=== PATIENT | female | born 1975 | race Caucasian/White ===

== ENCOUNTER 2017-11-11 22:21 | Emergency (ER) | payer OTHER ==
[2017-11-11 22:32] VITALS: BP 157/92
--- NOTE | 2017-11-11 23:02 | ED Physician Documentation ---
PD HPI SKIN - Stated complaint Stated Complaint: PX RT BREAST - Chief complaint Chief Complaint: Wound - History obtained from History obtained from: Patient - History of Present Illness Timing - onset: Today (noted tonight) Pain level now: 4 Quality / character: Itchy, Painful, Discolored, Raised, Swelling Associated symptoms: No: Fever Contributing factors: Unknown Similar symptoms before: Has not had sx before Recently seen: Not recently seen - Additional information Additional information: tonight, patient noticed she had a tender, red, swollen area on lateral aspect of right breast. 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 - Present Medications Home Medications: Ambulatory Orders Medication Instructions Recorded Confirmed Lisinopril 10 mg PO DAILY 01/25/16 11/11/17 Cephalexin [Keflex] 500 mg PO QID #27 capsule 11/11/17 - Allergies Allergies/Adverse Reactions: Allergies Allergy/AdvReac Type Severity Reaction Status Date / Time doxycycline Allergy Edema Verified 06/02/13 14:42 - Social History Does the pt smoke?: No Smoking Status: Never smoker Does the pt drink ETOH?: No Does the pt have substance abuse?: No - Immunizations Immunizations are current?: Yes PD ED PE NORMAL - Vitals Vital signs reviewed: Yes - General General: Alert and oriented X 3, No acute distress, Well developed/nourished PD ED PE EXPANDED - Derm SKin visual: 1 - tenderness (2-3cm diameter erythema, slightly raised, without fluctuance or discharge. No palpable abscess margins) Results - Vitals Vitals: Vital Signs - 24 hr 11/11/17 22:28 Temperature 36.5 C Heart Rate 77 Respiratory 18 Rate Blood Pressure 157/92 H O2 Saturation 98 Oxygen O2 Source Room air PD MEDICAL DECISION MAKING - ED course Complexity details: considered differential, d/w patient Departure - Departure Disposition: 01 Home, Self Care Clinical Impression: Cellulitis Condition: Good Instructions: ED Infec Skin Cellulitis Follow-Up: PATRICIA EISENBERG [Primary Care Provider] - (3-5 days) Prescriptions: Cephalexin [Keflex] 500 mg PO QID #27 capsule Discharge Date/Time: 11/11/17 23:23
[2017-11-11] MEDS ORDERED: cephALEXin 250 MG CAPSULE PO STA (23:14)
== END 2017-11-11 23:23 | disposition home or self-care (01) ==
LOC: ED 22:21
DX: N61.0 Mastitis without abscess (principal); I10 Essential (primary) hypertension; E78.00 Pure hypercholesterolemia, unspecified
CPT/HCPCS: 99283; A9270

== ENCOUNTER 2018-02-12 11:02 | Emergency (ER) | payer OTHER ==
[2018-02-12 11:12] VITALS: BP 187/98
[2018-02-12] MEDS ORDERED: OSELTAMIVIR 75 MG CAPSULE PO STA (12:06)
[2018-02-12] MEDS ORDERED: guaiFENesin/DEXTROMETHORPHAN 10 ML UDC PO STA (12:06)
[2018-02-12] MEDS ORDERED: IBUPROFEN 400 MG TABLET PO STA (12:08)
--- NOTE | 2018-02-12 12:25 | ED Physician Documentation ---
History of Present Illness - Stated complaint Stated Complaint: COUGH/CHILLS/WILSON - Chief complaint Chief Complaint: Fever - Additonal information Additional information: hx from pt 42 female to ED with 2 days of fever chills myalgias cough no NVD with same no travel sick contacts at work Review of Systems Constitutional: reports: Fever, Chills, Myalgias, Fatigue Respiratory: reports: Cough GI: denies: Vomiting, Diarrhea : denies: Now EGA (denies) PD PAST MEDICAL HISTORY - Past Medical History Past Medical History: Yes Cardiovascular: Hypertension, High cholesterol Derm: Other - Past Surgical History 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, 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 - Present Medications Home Medications: Ambulatory Orders Medication Instructions Recorded Confirmed Lisinopril 10 mg PO DAILY 01/25/16 02/12/18 Benzonatate [Tessalon] 100 mg PO TID PRN #20 capsule 02/12/18 Oseltamivir [Tamiflu] 75 mg PO BID #9 capsule 02/12/18 guaiFENesin/DEXTROMETHORPHAN 10 ml PO Q6H PRN #120 ml 02/12/18 [Robitussin Dm] - Allergies Allergies/Adverse Reactions: Allergies Allergy/AdvReac Type Severity Reaction Status Date / Time doxycycline Allergy Edema Verified 02/12/18 11:12 - Social History Does the pt smoke?: No Smoking Status: Never smoker Does the pt drink ETOH?: No Does the pt have substance abuse?: No - Immunizations Immunizations are current?: Yes - POLST Patient has POLST: No PD ED PE NORMAL - Vitals Vital signs reviewed: Yes - General General: Alert and oriented X 3 - HEENT HEENT: PERRL - Neck Neck: Supple, no meningeal sign - Cardiac Cardiac: RRR - Respiratory Respiratory: No respiratory distress, Clear bilaterally - Abdomen Abdomen: Non tender - Neuro Neuro: Alert and oriented X 3 Results - Vitals Vitals: Vital Signs - 24 hr 02/12/18 11:10 Temperature 37.0 C Heart Rate 89 Respiratory 22 Rate Blood Pressure 187/98 H O2 Saturation 99 Oxygen O2 Source Room air - Labs Labs: Laboratory Tests 02/12/18 11:14 Influenza A (Rapid) Negative Influenza B (Rapid) POSITIVE H Influenza Types A,B Ag + H PD MEDICAL DECISION MAKING - ED course ED course: discussed side effects of tamiflu and risk benefit and pt wishes to take it Departure - Departure Disposition: 01 Home, Self Care Clinical Impression: Influenza B Condition: Good Instructions: ED Flu, Medication: Tamiflu (Oseltamivir) Prescriptions: Benzonatate [Tessalon] 100 mg PO TID PRN #20 capsule PRN Reason: to ease cough guaiFENesin/DEXTROMETHORPHAN [Robitussin Dm] 10 ml PO Q6H PRN #120 ml PRN Reason: Cough Oseltamivir [Tamiflu] 75 mg PO BID #9 capsule Comments: You have influenza B As we discussed the tamiflu medication can shorten the duration and severity of the illness but sometimes causes side effects much as vomiting diarrhea or even hallucinations and other neurologic symptoms - if you develop side effects, please stop the tamiflu Forms: Activity restrictions
== END 2018-02-12 12:43 | disposition home or self-care (01) ==
LOC: ED 11:02
DX: J10.1 Influenza due to other identified influenza virus with other respiratory manifestations (principal); I10 Essential (primary) hypertension; E78.00 Pure hypercholesterolemia, unspecified
CPT/HCPCS: 87275; 87276; 99281; 99283; A9270

== ENCOUNTER 2018-02-14 18:40 | Emergency (ER) | payer OTHER ==
--- NOTE | 2018-02-14 19:20 | ED Physician Documentation ---
PD HPI URI - Stated complaint Stated Complaint: SOA - Chief complaint Chief Complaint: Resp - History obtained from History obtained from: Patient - History of Present Illness Timing - onset: Yesterday Timing duration: Days (had had flu symptoms for a week or so with cough and malaise, now with increased cough and feeling short of breath.) Timing details: Abrupt onset, Still present Associated symptoms: Chills, Nasal congestion, Sore throat, Dry cough. No: Fever Contributing factors: Sick contact (her had initially and was Dx with Influenza B, then patient sick with same symptoms. Now daughter is with it starting yesterday.). No: Travel, Immunocompromised Worsened by: Activity Similar symptoms before: Has not had sx before Recently seen: Clinic (Rx with Tamiflu and Tessalon.) Review of Systems Constitutional: reports: Fever, Myalgias Nose: reports: Rhinorrhea / runny nose, Congestion Throat: denies: Sore throat Respiratory: reports: Dyspnea, Cough GI: reports: Nausea. 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 - Present Medications Home Medications: Ambulatory Orders Medication Instructions Recorded Confirmed Lisinopril 10 mg PO DAILY 01/25/16 02/12/18 Benzonatate [Tessalon] 100 mg PO TID PRN #20 capsule 02/12/18 Oseltamivir [Tamiflu] 75 mg PO BID #9 capsule 02/12/18 guaiFENesin/DEXTROMETHORPHAN 10 ml PO Q6H PRN #120 ml 02/12/18 [Robitussin Dm] Albuterol Sulf [Ventolin Hfa 1 - 2 puffs INH Q4HR PRN #1 inhaler 02/14/18 Inhaler] Dexamethasone [Decadron] 4 mg PO DAILY #5 tablet 02/14/18 HYDROcod/ACETAM 5/325 [[place] 5/325] 1 tab PO Q6H PRN #15 tablet 02/14/18 - Allergies Allergies/Adverse Reactions: Allergies Allergy/AdvReac Type Severity Reaction Status Date / Time doxycycline Allergy Edema Verified 02/12/18 11:12 - Social History Does the pt smoke?: No Smoking Status: Never smoker Does the pt drink ETOH?: No Does the pt have substance abuse?: No - Immunizations Immunizations are current?: Yes - POLST Patient has POLST: No PD ED PE NORMAL - Vitals Vital signs reviewed: Yes - General General: Alert and oriented X 3, No acute distress, Well developed/nourished - HEENT HEENT: Ears normal, Moist mucous membranes, Pharynx benign, Other (clear rhinorrhea) - Neck Neck: Supple, no meningeal sign - Cardiac Cardiac: RRR, No murmur - Respiratory Respiratory: No: Clear bilaterally (wheezing noted bilaterally and with some perihilar hoarseness. Some hoarseness of voice. ) - Abdomen Abdomen: Soft, Non tender - Derm Derm: Normal color, Warm and dry, No rash - Extremities Extremities: No tenderness to palpate, Normal ROM s pain - Neuro Neuro: Alert and oriented X 3, No motor deficit, Normal speech (just hoarse) Results - Vitals Vitals: Vital Signs - 24 hr 02/14/18 02/14/18 02/14/18 18:43 19:57 20:39 Temperature 37.4 C 37.2 C Heart Rate 86 86 87 Respiratory 18 18 12 Rate Blood Pressure 167/90 H 156/102 H O2 Saturation 98 97 Oxygen O2 Source Room air PD MEDICAL DECISION MAKING - ED course Complexity details: re-evaluated patient (feeling better after Neb treatment. ) , considered differential (Has flu and has hoarseness and wheezing, without fevers and has good sats. Sounds inflammatory and bronchspastic. ), d/w patient , d/w family Departure - Departure Disposition: 01 Home, Self Care Clinical Impression: Bronchitis, Influenza B Condition: Stable Record reviewed to determine appropriate education?: Yes Instructions: ED URI Viral W Wheezing Follow-Up: PATRICIA EISENBERG [Primary Care Provider] - Prescriptions: Albuterol Sulf [Ventolin Hfa Inhaler] 1 - 2 puffs INH Q4HR PRN #1 inhaler PRN Reason: Shortness Of Air/Wheezing Dexamethasone [Decadron] 4 mg PO DAILY #5 tablet HYDROcod/ACETAM 5/325 [[place] 5/325] 1 tab PO Q6H PRN #15 tablet PRN Reason: Pain Comments: This sounds like some bronchial inflammation and airway spasming related to the flu. We will add an albuterol inhaler 2 puffs 4 times a day the next 7-10 days and added times when you are feeling wheezy or tight. Add Decadron anti- inflammatory daily for 5 more days to decrease the inflammation. Use hydrocodone if needed for pain and cough is a better cough suppressant. He can continue the Tessalon he had as well. Drink lots of fluids. Tylenol or ibuprofen if needed for fevers or pains. Recheck if not improving over the next few days. Forms: Activity restrictions Discharge Date/Time: 02/14/18 20:40
[2018-02-14] MEDS ORDERED: guaiFENesin/CODEINE 5 ML UDC PO STA (19:47)
[2018-02-14] MEDS ORDERED: DEXAMETHASONE 10 MG/ML VIAL PO STA (19:47)
[2018-02-14] MEDS ORDERED: ALBUTEROL NEB 2.5 MG/3 ML INH STA (19:47)
[2018-02-14] MEDS ORDERED: HYDROcod/ACET 5/325 Prepack 4 PO STA (20:26)
[2018-02-14 20:39] VITALS: BP 156/102
== END 2018-02-14 20:40 | disposition home or self-care (01) ==
LOC: ED 18:40
DX: J10.1 Influenza due to other identified influenza virus with other respiratory manifestations (principal); J40 Bronchitis, not specified as acute or chronic; I10 Essential (primary) hypertension; E78.00 Pure hypercholesterolemia, unspecified
CPT/HCPCS: 94640; 99283; A9270

== ENCOUNTER 2019-08-29 21:24 | Emergency (ER) | payer OTHER ==
--- NOTE | 2019-08-29 22:22 | ED Physician Documentation ---
PD HPI BACK INJURY - Stated complaint Stated Complaint: BK PX - History obtained from History obtained from: Patient - History of Present Illness Location: Lower (midline to just right) Type of injury: Twist (just slight twist and bending to lift and abrupt onset of lower back pain. Continues to hurt with minimal ROM. No fever, No radiation of pain. No weakness nor numbness. No chronic back pain.). No: Fall Where injury occurred: Home Timing - onset: Yesterday Timing - details: Abrupt onset, Still present Quality: Pain, Sharp Improved by: Rest Worsened by: Moving. No: Palpating Associated symptoms: No: Fever, Weakness, Numbness, Incontinent of urine Contributing factors: No: Prior back surgery, Work related Similar symptoms before: Has not had sx before (back pain many years ago but no chronic/ongoing pains.) Recently seen: Not recently seen Review of Systems Constitutional: denies: Fever, Chills, Myalgias Nose: denies: Rhinorrhea / runny nose, Congestion Throat: denies: Sore throat Cardiac: denies: Chest pain / pressure Respiratory: denies: Dyspnea, Cough GI: denies: Abdominal Pain, Nausea, Vomiting, Diarrhea : denies: Dysuria, Frequency, Hematuria Skin: denies: Rash, Lesions Musculoskeletal: reports: Back pain Neurologic: denies: Focal weakness, Numbness PD PAST MEDICAL HISTORY - Past Medical History Cardiovascular: Hypertension, High cholesterol Respiratory: None Endocrine/Autoimmune: None Derm: Other - Past Surgical History 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, 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 - Present Medications Home Medications: Ambulatory Orders Medication Instructions Recorded Confirmed Lisinopril 10 mg PO DAILY 01/25/16 02/12/18 Benzonatate [Tessalon] 100 mg PO TID PRN #20 capsule 02/12/18 Oseltamivir [Tamiflu] 75 mg PO BID #9 capsule 02/12/18 guaiFENesin/DEXTROMETHORPHAN 10 ml PO Q6H PRN #120 ml 02/12/18 [Robitussin Dm] Albuterol Sulf [Ventolin Hfa 1 - 2 puffs INH Q4HR PRN #1 inhaler 02/14/18 Inhaler] HYDROcod/ACETAM 5/325 [[place] 5/325] 1 tab PO Q6H PRN #15 tablet 02/14/18 dexAMETHasone [Decadron] 4 mg PO DAILY #5 tablet 02/14/18 Oxycodone HCl/Acetaminophen 1 each PO Q6H PRN #18 tablet 08/29/19 [Percocet 5-325 mg Tablet] Tizanidine HCl 4 mg PO TID PRN #25 capsule 08/29/19 dexAMETHasone [Decadron] 4 mg PO DAILY #5 tablet 08/29/19 - Allergies Allergies/Adverse Reactions: Allergies Allergy/AdvReac Type Severity Reaction Status Date / Time doxycycline Allergy Edema Verified 08/29/19 21:25 - Social History Does the pt smoke?: No Smoking Status: Never smoker Does the pt drink ETOH?: No Does the pt have substance abuse?: No - Immunizations Immunizations are current?: Yes - POLST Patient has POLST: No PD ED PE NORMAL - Vitals Vital signs reviewed: Yes - General General: Alert and oriented X 3, No acute distress, Well developed/nourished - Cardiac Cardiac: RRR, No murmur - Respiratory Respiratory: Clear bilaterally - Abdomen Abdomen: Soft, Non tender - Female Female : Deferred - Rectal Rectal: Deferred - Back Back: No CVA TTP, Other (tender lower lumbar midline and just right of center. No deformity. SI area not tender. Guarded ROM with pain and stiffness. ) - Derm Derm: Normal color - Extremities Extremities: No edema, No calf tenderness / cord - Neuro Neuro: Alert and oriented X 3, No motor deficit, No sensory deficit, Other (normal knee reflexes. ) Results - Vitals Vitals: Vital Signs - 24 hr 08/29/19 23:25 Heart Rate 72 Respiratory 16 Rate Blood Pressure 147/102 H O2 Saturation 100 Oxygen O2 Source Room air - Labs Labs: Laboratory Tests 08/29/19 22:25 Urine Color YELLOW Urine Clarity CLEAR Urine pH 6.5 Ur Specific [place] 1.020 Urine Protein NEGATIVE Urine Glucose (UA) NEGATIVE Urine Ketones TRACE Urine Occult Blood NEGATIVE Urine Nitrite NEGATIVE Urine Bilirubin NEGATIVE Urine Urobilinogen 1 (NORMAL) Ur Leukocyte Esterase NEGATIVE Ur Microscopic Review NOT INDICATED Urine Culture Comments NOT INDICATED - Rads (name of study) lumbar CT Radiology: Prelim report reviewed (neural formaminal stenosis at L5/S1, no fractures. DDD. Similar to images from 2013.), See rad report PD MEDICAL DECISION MAKING - ED course Complexity details: reviewed results (no fractures, similar to CT of 2013), re- evaluated patient (improved with IM and PO meds. ), considered differential (abrupt pain onset and hurts with slight movement. Tender midline. Get imaging to ensure no acute compressive defect or such. ), d/w patient Departure - Departure Disposition: 01 Home, Self Care Clinical Impression: Strain of muscle, fascia and tendon of lower back, initial encounter Condition: Stable Record reviewed to determine appropriate education?: Yes Instructions: ED Low Back Pain Injury Prescriptions: dexAMETHasone [Decadron] 4 mg PO DAILY #5 tablet Oxycodone HCl/Acetaminophen [Percocet 5-325 mg Tablet] 1 each PO Q6H PRN #18 tablet PRN Reason: pain Tizanidine HCl 4 mg PO TID PRN #25 capsule PRN Reason: Spasms Comments: Heat and gentle stretching for the back. Physical treatment such as chiropractic and massage are good. Continue some anti-inflammatories such as ibuprofen 600 800 mg 3 times a day. Add Decadron steroid anti-inflammatory daily for 5 more days. Tizanidine muscle relaxant if needed for stiffness and spasms. Add Tylenol or Percocet every 4-6 hours if needed for pain. Recheck if not improving well over the next several days to week. Discharge Date/Time: 08/30/19 00:02
[2019-08-29] MEDS ORDERED: HYDROmorphone 1 MG/ML CARPUJECT IM STA (22:38)
[2019-08-29] MEDS ORDERED: CHERRY SYRUP 10 ML UDC PO ONE (22:38)
[2019-08-29] MEDS ORDERED: DEXAMETHASONE 10 MG/ML VIAL PO STA (22:38)
[2019-08-29] MEDS ORDERED: LORazepam 2 MG/ML VIAL IM STA (22:38)
[2019-08-29] MEDS ORDERED: ACETAMINOPHEN 325 MG TABLET PO STA (22:39)
[2019-08-29 22:40] LABS: BILIRUBIN,URINE NEGATIVE (NEGATIVE); GLUCOSE, URINE (UA) NEGATIVE (NEGATIVE); KETONES,URINE (UA) TRACE mg/dL (NEGATIVE); LEUKOCYTE ESTERASE, URINE NEGATIVE (NEGATIVE); NITRITE,URINE NEGATIVE (NEGATIVE); OCCULT BLOOD,URINE NEGATIVE (NEGATIVE); PH,URINE 6.5 PH (5.0-7.5); PROTEIN,URINE NEGATIVE (NEGATIVE); UROBILINOGEN,URINE 1 (NORMAL) E.U./dL (NORMAL)
[2019-08-29 22:51] LABS: CLARITY,URINE CLEAR (CLEAR)
[2019-08-29 23:27] VITALS: BP 147/102
--- NOTE | 2019-08-29 23:41 | CT Report ---
Reason: abrupt lumbar pain with twisting Procedure Date: 08/29/2019 Accession Number: [id number] / [id number] Procedure: CT - LUMBAR SPINE WO CPT Code: FULL RESULT: EXAM: CT LUMBAR SPINE WITHOUT CONTRAST EXAM DATE: 08/29/2019 11:09 PM. CLINICAL HISTORY: Abrupt lumbar pain with twisting. COMPARISONS: ABDOMEN/PELVIS W/ 07/12/2013 2:26 AM. TECHNIQUE: Thin-section axial images were acquired of the lumbar spine from T12 to S1 without contrast. Post-processing: Coronal and sagittal reformats. Other: None. In accordance with CT protocol optimization, one or more of the following dose reduction techniques were utilized for this exam: automated exposure control, adjustment of mA and/or KV based on patient size, or use of iterative reconstructive technique. FINDINGS: Alignment: No scoliosis or spondylolisthesis. Bones: Five [id number] lumbar vertebral bodies are present. No fractures or bone lesions. Disk Levels/Facets: T12-L1: Unremarkable. L1-L2: Unremarkable. L2-L3: Unremarkable. L3-L4: Unremarkable. L4-L5: Mild to moderate left facet arthropathy. L5-S1: Mild to moderate disk height loss. Uncovertebral hypertrophic changes on the right with some mild facet arthropathy creates moderate to severe right neural foraminal stenosis. No significant left neural foraminal stenosis. Anterior disk osteophyte complex. Irregularity to the inferior endplate, but sclerosis involving nearly half of the L5 vertebral body, similar as on the prior. Musculature: Normal. No fatty atrophy. Other: The visualized retroperitoneum is unremarkable. IMPRESSION: Degenerative disk disease at L5-S1, with moderate to severe right neural foraminal stenosis. There is no fracture or subluxation. Not significantly changed compared to June 2013. RADIA
[2019-08-29] MEDS ORDERED: oxyCODONE/ACET 5/325 Prepack 4 PO STA (23:43)
== END 2019-08-30 00:02 | disposition home or self-care (01) ==
LOC: ED 21:24
DX: S39.012A Strain of muscle, fascia and tendon of lower back, initial encounter (principal); X50.1XXA Overexertion from prolonged static or awkward postures, initial encounter; Y92.009 Unspecified place in unspecified non-institutional (private) residence as the place of occurrence of the external cause; M51.37 Other intervertebral disc degeneration, lumbosacral region; M48.07 Spinal stenosis, lumbosacral region; I10 Essential (primary) hypertension
CPT/HCPCS: 72131; 81003; 96372; 99284; A9270; J1170; J2060; 81001; 87086

== ENCOUNTER 2020-04-13 16:48 | Emergency (ER) | payer OTHER ==
[2020-04-13] MEDS ORDERED: AZITHROMYCIN 250 MG TABLET PO STA (17:34)
--- NOTE | 2020-04-13 17:37 | ED Physician Documentation ---
History of Present Illness - Stated complaint Stated Complaint: COUGH - Chief complaint Chief Complaint: General - History obtained from History obtained from: Patient (3 months of minimally productive cough, worse towards the end of the workday and less so at night and in the morning. No shortness of breath or chest pain. No fevers. 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 - Present Medications Home Medications: Ambulatory Orders Medication Instructions Recorded Confirmed lisinopriL [Lisinopril] 10 mg PO DAILY 01/25/16 02/12/18 Benzonatate [Tessalon] 100 mg PO TID PRN #20 capsule 02/12/18 Oseltamivir [Tamiflu] 75 mg PO BID #9 capsule 02/12/18 guaiFENesin/DEXTROMETHORPHAN 10 ml PO Q6H PRN #120 ml 02/12/18 [Robitussin Dm] Albuterol Sulf [Ventolin Hfa 1 - 2 puffs INH Q4HR PRN #1 inhaler 02/14/18 Inhaler] HYDROcod/ACETAM 5/325 [[place] 5/325] 1 tab PO Q6H PRN #15 tablet 02/14/18 dexAMETHasone [Decadron] 4 mg PO DAILY #5 tablet 02/14/18 Oxycodone HCl/Acetaminophen 1 each PO Q6H PRN #18 tablet 08/29/19 [Percocet 5-325 mg Tablet] Tizanidine HCl 4 mg PO TID PRN #25 capsule 08/29/19 dexAMETHasone [Decadron] 4 mg PO DAILY #5 tablet 08/29/19 Azithromycin 1 tab PO DAILY #4 tablet 04/13/20 guaiFENesin/CODEINE [Robitussin AC] 5 - 10 ml PO Q6H PRN #120 ml 04/13/20 - Allergies Allergies/Adverse Reactions: Allergies Allergy/AdvReac Type Severity Reaction Status Date / Time doxycycline Allergy Edema Verified 08/29/19 21:25 - Social History Does the pt smoke?: No Smoking Status: Never smoker Does the pt drink ETOH?: No Does the pt have substance abuse?: No - Immunizations Immunizations are current?: Yes - POLST Patient has POLST: No PD ED PE NORMAL - Vitals Vital signs reviewed: Yes - General General: Alert and oriented X 3, Other (Occasional bronchitic cough) - Cardiac Cardiac: RRR, No murmur - Respiratory Respiratory: No respiratory distress, Clear bilaterally - Abdomen Abdomen: Non tender - Neuro Neuro: Alert and oriented X 3, Normal speech - Psych Psych: Normal mood, Normal affect Results - Vitals Vitals: Vital Signs - 24 hr 04/13/20 16:55 Temperature 36.8 C Heart Rate 91 Respiratory 16 Rate Blood Pressure 156/100 H O2 Saturation 100 Oxygen O2 Source Room air PD MEDICAL DECISION MAKING - ED course ED course: Given the time course, pertussis is a possibility and a test will be done and she is administered Zithromax pending results. Also discussed that she needs to be out of work and on home quarantine until either the results are done or the antibiotics are complete. Departure - Departure Disposition: 01 Home, Self Care Clinical Impression: Bronchitis Condition: Good Record reviewed to determine appropriate education?: Yes Instructions: Bronchitis Acute Dc Prescriptions: Azithromycin 1 tab PO DAILY #4 tablet guaiFENesin/CODEINE [Robitussin AC] 5 - 10 ml PO Q6H PRN #120 ml PRN Reason: Cough Comments: We are running a test for pertussis, we will call you if it is positive. That said you should self quarantine until either it is negative or you have completed the antibiotics. Return for new or worsening symptoms. Forms: Activity restrictions
[2020-04-13] MEDS ORDERED: guaiFENesin/CODEINE 5 ML UDC PO STA (17:39)
[2020-04-13 18:04] VITALS: BP 160/89
== END 2020-04-13 18:04 | disposition home or self-care (01) ==
LOC: ED 16:48
DX: J40 Bronchitis, not specified as acute or chronic (principal); I10 Essential (primary) hypertension
CPT/HCPCS: 87798; 99284; A9270

== ENCOUNTER 2020-04-22 20:10 | Emergency (ER) | payer OTHER ==
[2020-04-22 20:25] VITALS: BP 147/91
--- NOTE | 2020-04-22 20:39 | ED Physician Documentation ---
PD HPI URI - Stated complaint Stated Complaint: COUGH / FEMALE - Chief complaint Chief Complaint: Resp - History obtained from History obtained from: Patient - History of Present Illness Timing - onset: How many months ago (2 1/2) Timing duration: Months (2 1/2) Timing details: Abrupt onset, Still present Associated symptoms: Sore throat, Dry cough, Dyspnea. No: Fever, Hemoptysis, Chest pain, Bilateral edema Contributing factors: No: Sick contact, Immunocompromised, COPD / asthma Recently seen: Emergency Dept (seen about 10 days ago for this and Rx with zithromax and cough med, with pertussis test done, which came back negative. Pt says got some better but not fully and symptoms returning the past 3-4 days.) Review of Systems Constitutional: reports: Myalgias. denies: Fever, Chills Nose: denies: Sinus pressure / pain Throat: reports: Sore throat Cardiac: denies: Chest pain / pressure Respiratory: reports: Dyspnea, Cough. denies: Wheezing GI: denies: Vomiting, Diarrhea : reports: Discharge (itchy with slight discharge c/w yeast infection the past 4-5 days) PD PAST MEDICAL HISTORY - Past Medical History Cardiovascular: Hypertension, High cholesterol Respiratory: None Endocrine/Autoimmune: None Derm: Other - Past Surgical History Past Surgical History: Yes /BENCH HAND: section, 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 - Present Medications Home Medications: Ambulatory Orders Medication Instructions Recorded Confirmed lisinopriL [Lisinopril] 30 mg PO DAILY 01/25/16 02/12/18 Benzonatate [Tessalon Perle] 100 - 200 mg PO TID PRN #30 capsule 04/22/20 Fluconazole [Diflucan] 150 mg PO Q3D #2 tablet 04/22/20 Hydrochlorothiazide 25 mg PO DAILY 04/22/20 04/22/20 cefUROXime axetiL [Ceftin] 250 mg PO Q12H #14 tablet 04/22/20 dexAMETHasone [Decadron] 4 mg PO DAILY #5 tablet 04/22/20 guaiFENesin/CODEINE [Robitussin AC] 10 ml PO Q6H PRN #240 ml 04/22/20 - Allergies Allergies/Adverse Reactions: Allergies Allergy/AdvReac Type Severity Reaction Status Date / Time doxycycline Allergy Edema Verified 04/22/20 20:26 - Social History Does the pt smoke?: No Smoking Status: Never smoker Does the pt drink ETOH?: No Does the pt have substance abuse?: No - Immunizations Immunizations are current?: Yes - POLST Patient has POLST: No PD ED PE NORMAL - Vitals Vital signs reviewed: Yes - General General: Alert and oriented X 3, No acute distress, Well developed/nourished - HEENT HEENT: Ears normal, Moist mucous membranes, Pharynx benign - Neck Neck: Supple, no meningeal sign, No adenopathy - Cardiac Cardiac: RRR, No murmur - Respiratory Respiratory: No respiratory distress, Clear bilaterally, Other (harsh, vibrato cough at times, with persistence.) Results - Vitals Vitals: Vital Signs - 24 hr 04/22/20 20:19 Temperature 36.4 C L Heart Rate 94 Respiratory 18 Rate Blood Pressure 147/91 H O2 Saturation 98 Oxygen O2 Source Room air PD MEDICAL DECISION MAKING - ED course Complexity details: reviewed old records, reviewed results, considered differential, d/w patient Departure - Departure Disposition: 01 Home, Self Care Clinical Impression: Bronchitis, Yeast vaginitis Condition: Stable Record reviewed to determine appropriate education?: Yes Instructions: ED Upper Resp Infec Abx Tx Follow-Up: VASQUEZ GROVER ARNP [Primary Care Provider] - Prescriptions: Benzonatate [Tessalon Perle] 100 - 200 mg PO TID PRN #30 capsule PRN Reason: Cough cefUROXime axetiL [Ceftin] 250 mg PO Q12H #14 tablet dexAMETHasone [Decadron] 4 mg PO DAILY #5 tablet Fluconazole [Diflucan] 150 mg PO Q3D #2 tablet guaiFENesin/CODEINE [Robitussin AC] 10 ml PO Q6H PRN #240 ml PRN Reason: Cough Comments: Stay well-hydrated. Use the benzonatate and cough medicine as needed for cough suppression as prescribed. We will try different antibiotic with Ceftin twice daily for a week. Also add Decadron steroid for inflammation of the bronchials daily for 5 more days. Use the fluconazole orally every 3 days for 2 more doses to treat the precipitated yeast infection. Recheck if not improved well over the next week. Discharge Date/Time: 04/22/20 21:35
[2020-04-22] MEDS ORDERED: CHERRY SYRUP 10 ML UDC PO ONE (21:10)
[2020-04-22] MEDS ORDERED: DEXAMETHASONE 10 MG/ML VIAL PO STA (21:10)
[2020-04-22] MEDS ORDERED: FLUCONAZOLE 100 MG TABLET PO STA (21:10)
[2020-04-22] MEDS ORDERED: BENZONATATE 100 MG CAPSULE PO STA (21:10)
[2020-04-22] MEDS ORDERED: guaiFENesin/CODEINE 5 ML UDC PO STA (21:11)
== END 2020-04-22 21:35 | disposition home or self-care (01) ==
LOC: ED 20:10
DX: J40 Bronchitis, not specified as acute or chronic (principal); B37.3 Candidiasis of vulva and vagina; I10 Essential (primary) hypertension
CPT/HCPCS: 99283; 99284; A9270

== ENCOUNTER 2020-04-26 14:07 | Emergency (ER) | payer OTHER ==
--- NOTE | 2020-04-26 14:23 | ED Physician Documentation ---
History of Present Illness - Stated complaint Stated Complaint: HIGH BLOOD SUGAR - Chief complaint Chief Complaint: General - History obtained from History obtained from: Patient - History of Present Illness Timing: Today Pain level max: 0 Pain level now: 0 - Additonal information Additional information: 44 year old female with increased thirst and urination for the past several weeks. She was recently treated for a URI and placed on steroids. States that she checked her blood sugar last night with her parents machine and found her blood sugar was high. No abdominal pain. No vomiting or diarrhea. She has been taking decadron recently. Review of Systems Ten Systems: 10 systems reviewed and negative Constitutional: denies: Fever Nose: denies: Rhinorrhea / runny nose, Congestion Throat: denies: Sore throat Respiratory: denies: Cough GI: denies: Abdominal Pain, Vomiting, Constipation, Diarrhea, Hematemesis, Bloody / black stool : denies: Dysuria Skin: denies: Rash Musculoskeletal: denies: Neck pain, Back pain Neurologic: denies: Headache PD PAST MEDICAL HISTORY - Past Medical History Past Medical History: Yes Cardiovascular: Hypertension, High cholesterol Respiratory: None Endocrine/Autoimmune: None Derm: Other - Past Surgical History 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, 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 - Present Medications Home Medications: Ambulatory Orders Medication Instructions Recorded Confirmed lisinopriL [Lisinopril] 30 mg PO DAILY 01/25/16 02/12/18 Benzonatate [Tessalon Perle] 100 - 200 mg PO TID PRN #30 capsule 04/22/20 Fluconazole [Diflucan] 150 mg PO Q3D #2 tablet 04/22/20 Hydrochlorothiazide 25 mg PO DAILY 04/22/20 04/22/20 cefUROXime axetiL [Ceftin] 250 mg PO Q12H #14 tablet 04/22/20 dexAMETHasone [Decadron] 4 mg PO DAILY #5 tablet 04/22/20 guaiFENesin/CODEINE [Robitussin AC] 10 ml PO Q6H PRN #240 ml 04/22/20 Metformin HCl 500 mg PO BID #60 tablet 04/26/20 - Allergies Allergies/Adverse Reactions: Allergies Allergy/AdvReac Type Severity Reaction Status Date / Time doxycycline Allergy Edema Verified 04/26/20 14:17 - Social History Does the pt smoke?: No Smoking Status: Never smoker Does the pt drink ETOH?: No Does the pt have substance abuse?: No - Immunizations Immunizations are current?: Yes - POLST Patient has POLST: No PD ED PE NORMAL - Vitals Vital signs reviewed: Yes - General General: Alert and oriented X 3, No acute distress - HEENT HEENT: Moist mucous membranes - Neck Neck: Supple, no meningeal sign - Cardiac Cardiac: RRR, Strong equal pulses - Respiratory Respiratory: No respiratory distress, Clear bilaterally - Abdomen Abdomen: Soft, Non tender, Non distended - Back Back: No CVA TTP, No spinal TTP - Derm Derm: Warm and dry - Neuro Neuro: Alert and oriented X 3 - Psych Psych: Normal mood, Normal affect Results - Vitals Vitals: Vital Signs - 24 hr 04/26/20 04/26/20 04/26/20 14:17 16:22 17:31 Temperature 36.9 C 36.0 C L Heart Rate 72 80 70 Respiratory 24 12 20 Rate Blood Pressure 155/104 H 116/93 H 111/75 O2 Saturation 100 98 95 Oxygen O2 Source Room air - Labs Labs: Laboratory Tests 04/26/20 04/26/20 04/26/20 14:26 14:40 14:40 WBC 9.7 RBC 4.87 Hgb 13.9 Hct 42.4 MCV 87.1 MCH 28.5 MCHC 32.8 RDW 12.4 Plt Count 332 MPV 11.5 H Neut # (Auto) 4.9 Lymph # (Auto) 3.9 H [place] # (Auto) 0.7 Eos # (Auto) 0.0 Baso # (Auto) 0.0 Absolute Nucleated RBC 0.00 Nucleated RBC % 0.0 VBG pH VBG pCO2 VBG pO2 VBG HCO3 VBG Total CO2 VBG O2 Saturation VBG Base Excess Sodium 127 L Potassium 3.5 Chloride 87 L Carbon Dioxide 26 Anion Gap 14.0 H BUN 20 Creatinine 0.9 Estimated GFR (MDRD) 68 L Glucose 610 H* Glycated Hemoglobin Estim Average Glucose Calcium 9.4 Total Bilirubin 0.7 AST 23 ALT 41 Alkaline Phosphatase 123 H Total Protein 8.3 H Albumin 4.5 Globulin 3.8 Albumin/Globulin Ratio 1.2 Lipase 44 Urine Color YELLOW Urine Clarity CLEAR Urine pH 6.5 Ur Specific Ellis <=1.005 Urine Protein NEGATIVE Urine Glucose (UA) >=1000 H Urine Ketones NEGATIVE Urine Occult Blood TRACE-INTA Urine Nitrite NEGATIVE Urine Bilirubin NEGATIVE Urine Urobilinogen 0.2 (NORMAL) Ur Leukocyte Esterase NEGATIVE Ur Microscopic Review NOT INDICATED Urine Culture Comments NOT INDICATED Serum Ketones NEGATIVE 04/26/20 04/26/20 14:40 14:40 WBC RBC Hgb Hct MCV MCH MCHC RDW Plt Count MPV Neut # (Auto) Lymph # (Auto) [place] # (Auto) Eos # (Auto) Baso # (Auto) Absolute Nucleated RBC Nucleated RBC % VBG pH 7.426 H VBG pCO2 36.4 L VBG pO2 59.3 H VBG HCO3 23.4 VBG Total CO2 24.5 VBG O2 Saturation 91.8 H VBG Base Excess -0.5 Sodium Potassium Chloride Carbon Dioxide Anion Gap BUN Creatinine Estimated GFR (MDRD) Glucose Glycated Hemoglobin 10.5 H Estim Average Glucose 255 H Calcium Total Bilirubin AST ALT Alkaline Phosphatase Total Protein Albumin Globulin Albumin/Globulin Ratio Lipase Urine Color Urine Clarity Urine pH Ur Specific Ellis Urine Protein Urine Glucose (UA) Urine Ketones Urine Occult Blood Urine Nitrite Urine Bilirubin Urine Urobilinogen Ur Leukocyte Esterase Ur Microscopic Review Urine Culture Comments Serum Ketones PD MEDICAL DECISION MAKING - ED course Complexity details: reviewed results, re-evaluated patient, considered differential, d/w patient ED course: Patient feels better after IV fluids and insulin. She is still hyperglycemic, but not in DKA or hhonks. Her hemoglobin A1c is approximately 10.5. We will start her on metformin. She was given 2 L of fluid here. We will have her follow-up closely with her doctor this week for further evaluation and care. Patient counseled regarding signs and symptoms for which I believe and urgent re-evaluation would be necessary. Patient with good understanding of and agreement to plan and is comfortable going home at this time This document was made in part using voice recognition software. While efforts are made to proofread this document, sound alike and grammatical errors may occur. Departure - Departure Disposition: 01 Home, Self Care Clinical Impression: Hyperglycemia Diabetes Qualifiers: Diabetes mellitus type: other specified (including MICHELLE) Diabetes mellitus intermediate insulin use: without [employer] superintendent [employer] use Diabetes mellitus complication status: without complication Qualified Code(s): E13.9 - Other specified diabetes mellitus without complications Condition: Good Instructions: ED Diabetes General Info, ED Hyperglycemia Diabetic, ED Hyperglycemia New Susp Diabetes Follow-Up: ZIEULEWICZ,VASQUEZ, RESPIRATORY CARE TECHNICIAN [Primary Care Provider] - Within 1 week Prescriptions: Metformin HCl 500 mg PO BID #60 tablet Comments: Return if you worsen. Follow-up with your doctor this week for further care. You need to monitor your carbohydrate intake. The metformin may cause diarrhea as well. Call your doctor on Tuesday for an appointment this week. Your hemoglobin A1c was 10.5 today Discharge Date/Time: 04/26/20 17:31
[2020-04-26 14:44] LABS: BASOPHILS % (AUTO) 0.3 %; EOSINOPHILS % (AUTO) 0.3 %; HGB - HEMOGLOBIN 13.9 g/dL (12.0-16.0); LYMPHOCYTES # (AUTO) 3.9 10^3/uL (1.5-3.5); LYMPHOCYTES % (AUTO) 40.7 %; MEAN CORPUSCULAR HEMOGLOBIN 28.5 pg (27.0-31.0); MEAN CORPUSCULAR HGB CONC 32.8 g/dL (32.0-36.0); MEAN CORPUSCULAR VOLUME 87.1 fL (81.0-99.0); MEAN PLATELET VOLUME 11.5 fL (7.9-10.8); MONOCYTES # (AUTO) 0.7 10^3/uL (0.0-1.0); MONOCYTES % (AUTO) 7.1 %; NEUTROPHILS # (AUTO) 4.9 10^3/uL (1.5-6.6); PLT - PLATELET COUNT 332 10^3/uL (130-450); RED BLOOD COUNT 4.87 10^6/uL (4.20-5.40); RED CELL DISTRIBUTION WIDTH 12.4 % (12.0-15.0); WHITE BLOOD COUNT 9.7 x10^3/uL (4.8-10.8)
[2020-04-26] MEDS ORDERED: ELECTROLYTE-A SOLUTION 2,000 ML IV ONE (14:45)
[2020-04-26 14:50] LABS: VBG BASE EXCESS -0.5 mmol/L (-2 - +2); VBG PCO2 36.4 mmHg (41-51); VBG PH 7.426 (7.31-7.41); VBG PO2 59.3 mmHg (25-47); VBG TOTAL CO2 24.5 mmol/L (24-29)
[2020-04-26 14:57] LABS: BILIRUBIN,URINE NEGATIVE (NEGATIVE); GLUCOSE, URINE (UA) >=1000 mg/dL (NEGATIVE); KETONES,URINE (UA) NEGATIVE (NEGATIVE); LEUKOCYTE ESTERASE, URINE NEGATIVE (NEGATIVE); NITRITE,URINE NEGATIVE (NEGATIVE); OCCULT BLOOD,URINE TRACE-INTA (NEGATIVE); PH,URINE 6.5 PH (5.0-7.5); PROTEIN,URINE NEGATIVE (NEGATIVE); UROBILINOGEN,URINE 0.2 (NORMAL) E.U./dL (NORMAL)
[2020-04-26 14:59] LABS: CLARITY,URINE CLEAR (CLEAR)
[2020-04-26 15:03] LABS: ALBUMIN 4.5 g/dL (3.2-5.5); ALBUMIN/GLOBULIN RATIO 1.2 (1.0-2.2); ALKALINE PHOSPHATASE 123 IU/L (42-121); ALT ALANINE AMINOTRANSFERASE 41 IU/L (10-60); AST ASPARTATE AMINOTRANSFERASE 23 IU/L (10-42); BILIRUBIN,TOTAL 0.7 mg/dL (0.2-1.0); BUN - BLOOD UREA NITROGEN 20 mg/dL (6-20); CALCIUM 9.4 mg/dL (8.5-10.3); CARBON DIOXIDE - CO2 26 mmol/L (21-32); CHLORIDE 87 mmol/L (101-111); CREATININE 0.9 mg/dL (0.4-1.0); LIPASE 44 U/L (22-51); SODIUM 127 mmol/L (135-145); TOTAL PROTEIN 8.3 g/dL (6.7-8.2)
[2020-04-26 15:04] LABS: GLUCOSE 610 mg/dL (70-100)
[2020-04-26 15:07] LABS: KETONES, SERUM (ACETEST) NEGATIVE (NEGATIVE)
[2020-04-26 15:31] LABS: HB2 TOTAL 14.7 g/dL; HEMOGLOBIN A1C 1.34 g/dL; HEMOGLOBIN A1C % 10.5 % (4.6-6.2)
[2020-04-26] MEDS ORDERED: INSULIN REGULAR HUMAN 100 UNIT/1 ML 10 ML MDV SUBQ STA ×2 (15:31→16:22)
[2020-04-26] MEDS ORDERED: INSULIN REGULAR HUMAN 100 UNIT/1 ML 10 ML MDV ONE (16:40)
[2020-04-26 17:33] VITALS: BP 111/75
== END 2020-04-26 17:31 | disposition home or self-care (01) ==
LOC: ED 14:07
DX: E11.65 Type 2 diabetes mellitus with hyperglycemia (principal); I10 Essential (primary) hypertension
CPT/HCPCS: 36415; 80053; 81003; 82009; 82803; 83036; 83690; 85025; 96360; 96361; 99284; J1815; 81001; 87086

== ENCOUNTER 2021-02-25 10:15 | Emergency (ER) | payer OTHER ==
--- NOTE | 2021-02-25 10:56 | XRAY Report ---
PROCEDURE: Wrist 3 View RT INDICATIONS: injury TECHNIQUE: 3 views of the wrist were acquired. COMPARISON: None FINDINGS: Bones: No fractures or dislocations. No suspicious bony lesions. Scaphoid view: Scaphoid is grossly intact. Soft tissues: No suspicious soft tissue calcifications. IMPRESSION: No acute wrist fracture or dislocation. Reviewed by: Rick Cormier MD on 02/25/2021 10:54 AM PDT Approved by: Rick Cormier MD on 02/25/2021 10:54 AM PDT Station ID: [id number]
--- NOTE | 2021-02-25 10:59 | ED Physician Documentation ---
PD HPI UPPER EXT INJURY - Stated complaint Stated Complaint: RT WRIST PX - Chief complaint Chief Complaint: Trauma Ext - History obtained from History obtained from: Patient - History of Present Illness Location: Right, Wrist Type of injury: Fall Where injury occurred: Home Timing - onset: How many days ago (3) Timing - duration: Days (3) Timing - details: Abrupt onset, Still present Improved by: Rest, Immobilization Worsened by: Moving, Palpating Associated symptoms: No: Weakness, Numbness, Tingling Contributing factors: No: Anticoagulated Similar symptoms before: Has not had sx before Recently seen: Not recently seen - Additonal information Additional information: 45-year-old female fell backwards onto her buttocks and outstretched hands and she has injured her right wrist. 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 - Present Medications Home Medications: Ambulatory Orders Medication Instructions Recorded Confirmed lisinopriL [Lisinopril] 30 mg PO DAILY 01/25/16 02/25/21 Hydrochlorothiazide 25 mg PO DAILY 04/22/20 02/25/21 Dulaglutide [Trulicity] 0.75 mg SQ ONCE 02/25/21 02/25/21 hydrOXYzine pamoate [Vistaril] 50 mg PO HS 02/25/21 02/25/21 - Allergies Allergies/Adverse Reactions: Allergies Allergy/AdvReac Type Severity Reaction Status Date / Time doxycycline Allergy Edema Verified 02/25/21 10:22 - Social History Does the pt smoke?: No Smoking Status: Never smoker Does the pt drink ETOH?: Yes Does the pt have substance abuse?: No - Immunizations Immunizations are current?: Yes - POLST Patient has POLST: No PD ED PE NORMAL - Vitals Vital signs reviewed: Yes (hypertensive) - General General: Alert and oriented X 3, No acute distress, Well developed/nourished - HEENT HEENT: Atraumatic, PERRL, EOMI - Respiratory Respiratory: No respiratory distress - Derm Derm: Normal color, Warm and dry, No rash - Extremities Extremities: No deformity, No edema, Other (There is point tenderness to the volar aspect of the wrist there is fair range of movement and no significant swelling. There is no tenderness to the anatomic snuffbox. Distal neurovascular components are intact.) - Neuro Neuro: Alert and oriented X 3, customs broker 2-12 intact, No motor deficit, No sensory deficit, Normal speech Eye Opening: Spontaneous Motor: Obeys Commands Verbal: Oriented GCS Score: 15 - Psych Psych: Normal mood, Normal affect Results - Vitals Vitals: Vital Signs - 24 hr 02/25/21 02/25/21 10:24 11:48 Temperature 36.4 C L 36.9 C Heart Rate 90 83 Respiratory 18 14 Rate Blood Pressure 150/85 H 135/83 H O2 Saturation 100 99 Oxygen O2 Source Room air - Rads (name of study) wrist Radiology: Prelim report reviewed (Pression: No acute wrist fracture or dislocation.), EMP read indepedently, See rad report Procedures - Splint (location) right wrist Type of splint: Fiberglass, Volar cock up Other: Patient tolerated well, No complications, Neurovascular intact, Good alignment, Sling provided PD MEDICAL DECISION MAKING - ED course Complexity details: reviewed results, re-evaluated patient, considered dif ferential, d/w patient ED course: 45-year-old female with a FOOSH has a sprained wrist and she does not have tenderness over the anatomic snuffbox. She is placed into a splint and instructed to follow-up with her primary care doctor if she continues to have issues with pain within the 1 to 2 weeks. Departure - Departure Disposition: 01 Home, Self Care Clinical Impression: Right wrist sprain Qualifiers: Encounter type: initial encounter Qualified Code(s): S63.501A - Unspecified sprain of right wrist, initial encounter Condition: Stable Instructions: ED Sprain Wrist Follow-Up: VASQUEZ GROVER ARNP [Primary Care Provider] - Discharge Date/Time: 02/25/21 11:49
[2021-02-25 11:50] VITALS: BP 135/83
--- OUTSIDE RECORDS SUMMARY | 2021-03-03 23:41 | EXTERNAL MEDICAL SUMMARY RPT | Continuity of Care Document ---
:1975 Demographics Phone Unavailable Preferred Language Unknown Marital Status Unknown Congregation Affiliation Unknown Race Unknown Ethnic Group Unknown Author Organization [facility] Address [address] [place] [address] Phone Social History date description facility [phone]
== END 2021-02-25 11:49 | disposition home or self-care (01) ==
LOC: ED 10:15
DX: S63.501A Unspecified sprain of right wrist, initial encounter (principal); W01.0XXA Fall on same level from slipping, tripping and stumbling without subsequent striking against object, initial encounter; Y92.009 Unspecified place in unspecified non-institutional (private) residence as the place of occurrence of the external cause; I10 Essential (primary) hypertension; E11.9 Type 2 diabetes mellitus without complications; Z79.899 Other long term (current) drug therapy
CPT/HCPCS: 29125; 99282; 99283

== ENCOUNTER 2021-05-13 15:57 | Emergency (ER) | payer OTHER ==
[2021-05-13 16:10] VITALS: BP 133/83
--- NOTE | 2021-05-13 16:21 | ED Physician Documentation ---
PD HPI FOCAL NEURO - Stated complaint Stated Complaint: NUMBNESS LT SIDE OF FACE & TONGUE - Chief complaint Chief Complaint: Neuro - History obtained from History obtained from: Patient - History of Present Illness Timing - onset: How many days ago (2) Timing - duration: Days (2) Timing - details: Gradual onset Severity of deficit: Mild Weakness: Face, Left. No: Arm, Hand, Leg, Foot, Right Numbness: Face, Left. No: Arm, Hand, Leg, Foot, Right Associated symptoms: Headache (Occasional headaches, none currently). No: Nausea / vomiting, Seizure, Syncope, Fall, Head injury, Chest pain, Neck pain, Back pain Contributing factors: negative: Anticoagulated, Vascular dz, Atrial fibrillation Baseline status: positive: A&OX3, ambulatory, indep - Additional information Additional information: Patient is a 45-year-old female who presents to the emergency department complaining of left-sided facial numbness for the past 2 days. She feels like her smile is not symmetrical either. Nothing makes this better or worse. She states that she feels like the left side of her tongue is numb as well. Numbness or tingling in any of the extremities. No weakness or difficulty walking. Has never had similar symptoms. No recent illnesses. No fevers. No chills. No head injuries. 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: None : None HEENT: None Psych: None Musculoskeletal: None Derm: Other - Past Surgical History Past Surgical History: Yes /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: section, 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 - Present Medications Home Medications: Ambulatory Orders Medication Instructions Recorded Confirmed lisinopriL [Lisinopril] 30 mg PO DAILY 01/25/16 02/25/21 hydroCHLOROthiazide 25 mg PO DAILY 04/22/20 02/25/21 [Hydrochlorothiazide] Dulaglutide [Trulicity] 0.75 mg SQ ONCE 02/25/21 02/25/21 hydrOXYzine pamoate [Vistaril] 50 mg PO HS 02/25/21 02/25/21 Valacyclovir HCl [Valtrex] 1,000 mg PO TID #42 tablet 05/13/21 predniSONE [Deltasone] 60 mg PO DAILY #21 tablet 05/13/21 - Allergies Allergies/Adverse Reactions: Allergies Allergy/AdvReac Type Severity Reaction Status Date / Time doxycycline Allergy Edema Verified 05/13/21 16:10 - Social History Does the pt smoke?: No Smoking Status: Never smoker Does the pt drink ETOH?: Yes Does the pt have substance abuse?: No - Immunizations Immunizations are current?: Yes - POLST Patient has POLST: No PD ED PE NORMAL - Vitals Vital signs reviewed: Yes - General General: Alert and oriented X 3, No acute distress - HEENT HEENT: PERRL, EOMI, Ears normal, Moist mucous membranes, Pharynx benign - Neck Neck: Supple, no meningeal sign, No bony TTP - Cardiac Cardiac: RRR, Strong equal pulses - Respiratory Respiratory: No respiratory distress, Clear bilaterally - Abdomen Abdomen: Soft, Non tender, Non distended - Back Back: No spinal TTP - Derm Derm: Warm and dry - Extremities Extremities: No edema, No calf tenderness / cord - Neuro Neuro: Alert and oriented X 3, Other (minor facial paralysis with forehead involvement on the L side. mild numbness. ) - Psych Psych: Normal mood, Normal affect NIHSS - Time Time: 16:20 - Level of Consciousness Level of consciousness: (0) Alert, Keenly responsive LOC Questions: (0) Answers both Q's correct LOC Commands: (0) Performs both correctly - Gaze Best Gaze: (0) Normal - Visual Visual: (0) No loss - Facial Palsy Facial Palsy: (1) Minor paralysis - Motor Arms (both separate) Motor Arm (right): (0) No drift Motor Arm (left): (0) No drift - Motor Legs (both separate) Motor Leg (right): (0) No drift Motor Leg (left): (0) No drift - Limb Ataxia Limb Ataxia: (0) Absent - Sensory Sensory: (0) Normal - Best Language Best Language: (0) No aphasia - Dysarthria Dysarthria: (0) Normal - Extinction and Inattention (formally neg Extinction and inattention: (0) No abnormality - Total Score/Results Total Score/Result: 1 Results - Vitals Vitals: Vital Signs - 24 hr 05/13/21 15:59 Temperature 37.0 C Heart Rate 80 Respiratory 16 Rate Blood Pressure 133/83 H O2 Saturation 100 Oxygen O2 Source Room air PD MEDICAL DECISION MAKING - ED course Complexity details: reviewed results, re-evaluated patient, considered differential, d/w patient ED course: Patient with a left-sided Ventura's palsy. No indication of stroke or TIA. Will place on prednisone and valacyclovir. Recommend use of artificial tears and gel drops at night. Patient counseled regarding signs and symptoms for which I believe and urgent re-evaluation would be necessary. Patient with good understanding of and agreement to plan and is comfortable going home at this time This document was made in part using voice recognition software. While efforts are made to proofread this document, sound alike and grammatical errors may occur. Departure - Departure Disposition: 01 Home, Self Care Clinical Impression: Ventura's palsy Condition: Good Instructions: ED [place] Palsy Follow-Up: VASQUEZ GROVER ARNP [Primary Care Provider] - Within 1 week Prescriptions: predniSONE [Deltasone] 60 mg PO DAILY #21 tablet Valacyclovir HCl [Valtrex] 1,000 mg PO TID #42 tablet Comments: Use the medications as prescribed. Follow-up with your doctor for further care. You can use artificial tears for the left eye and gel tears at night especial ly if your left eye is becoming dry. Please start the steroids and valacyclovir today. Discharge Date/Time: 05/13/21 16:28
== END 2021-05-13 16:28 | disposition home or self-care (01) ==
LOC: ED 15:57
DX: G51.0 Bell's palsy (principal); I10 Essential (primary) hypertension; E11.9 Type 2 diabetes mellitus without complications; Z79.899 Other long term (current) drug therapy
CPT/HCPCS: 99283; 99284

== ENCOUNTER 2021-05-16 18:17 | Emergency (ER) | payer OTHER ==
[2021-05-16] MEDS ORDERED: INSULIN REGULAR HUMAN 100 UNIT/1 ML 10 ML MDV SUBQ STA (18:34)
[2021-05-16 18:53] LABS: BASOPHILS % (AUTO) 0.1 %; HCT - HEMATOCRIT 38.1 % (37.0-47.0); HGB - HEMOGLOBIN 12.4 g/dL (12.0-16.0); LYMPHOCYTES # (AUTO) 1.1 10^3/uL (1.5-3.5); LYMPHOCYTES % (AUTO) 12.3 %; MEAN CORPUSCULAR HEMOGLOBIN 28.9 pg (27.0-31.0); MEAN CORPUSCULAR HGB CONC 32.5 g/dL (32.0-36.0); MEAN CORPUSCULAR VOLUME 88.8 fL (81.0-99.0); MEAN PLATELET VOLUME 10.7 fL (7.9-10.8); MONOCYTES # (AUTO) 0.2 10^3/uL (0.0-1.0); NEUTROPHILS # (AUTO) 7.5 10^3/uL (1.5-6.6); NEUTROPHILS % (AUTO) 84.5 %; PLT - PLATELET COUNT 339 10^3/uL (130-450); RED BLOOD COUNT 4.29 10^6/uL (4.20-5.40); RED CELL DISTRIBUTION WIDTH 13.3 % (12.0-15.0); WHITE BLOOD COUNT 8.8 x10^3/uL (4.8-10.8)
[2021-05-16 18:55] LABS: VBG BASE EXCESS -2.6 mmol/L (-2 - +2); VBG HCO3 22.4 mmol/L (23-28); VBG OXYGEN SATURATION 46.9 % (60-80); VBG PCO2 39.5 mmHg (41-51); VBG PH 7.371 (7.31-7.41); VBG PO2 24.9 mmHg (25-47); VBG TOTAL CO2 23.6 mmol/L (24-29)
[2021-05-16 18:59] LABS: BILIRUBIN,URINE NEGATIVE (NEGATIVE); GLUCOSE, URINE (UA) >=1000 mg/dL (NEGATIVE); KETONES,URINE (UA) NEGATIVE (NEGATIVE); LEUKOCYTE ESTERASE, URINE NEGATIVE (NEGATIVE); NITRITE,URINE NEGATIVE (NEGATIVE); OCCULT BLOOD,URINE NEGATIVE (NEGATIVE); PROTEIN,URINE NEGATIVE (NEGATIVE); UROBILINOGEN,URINE 0.2 (NORMAL) E.U./dL (NORMAL)
[2021-05-16 19:03] LABS: CLARITY,URINE CLEAR (CLEAR)
[2021-05-16 19:05] LABS: ALBUMIN 4.1 g/dL (3.2-5.5); ALBUMIN/GLOBULIN RATIO 1.2 (1.0-2.2); ALKALINE PHOSPHATASE 80 IU/L (42-121); ALT ALANINE AMINOTRANSFERASE 20 IU/L (10-60); AST ASPARTATE AMINOTRANSFERASE 16 IU/L (10-42); BILIRUBIN,TOTAL 0.8 mg/dL (0.2-1.0); BUN - BLOOD UREA NITROGEN 25 mg/dL (6-20); CALCIUM 8.8 mg/dL (8.5-10.3); CARBON DIOXIDE - CO2 24 mmol/L (21-32); CHLORIDE 101 mmol/L (101-111); CREATININE 0.9 mg/dL (0.4-1.0); GFR - MDRD 68 (>89); GLUCOSE 360 mg/dL (70-100); LIPASE 53 U/L (22-51); POTASSIUM 3.9 mmol/L (3.5-5.0); SODIUM 133 mmol/L (135-145); TOTAL PROTEIN 7.5 g/dL (6.7-8.2)
[2021-05-16 19:17] LABS: KETONES, SERUM (ACETEST) NEGATIVE (NEGATIVE)
--- NOTE | 2021-05-16 19:34 | ED Physician Documentation ---
History of Present Illness - Stated complaint Stated Complaint: HIGH BLOOD SUGAR - Chief complaint Chief Complaint: General - History obtained from History obtained from: Patient - History of Present Illness Timing: Today Pain level max: 0 Pain level now: 0 - Additonal information Additional information: Patient is a 45-year-old female who presents to the emergency department with high blood sugar. She states that her diabetes educator Said if her blood sugar is over 350 she has to go to the emergency department. Patient states it was 370 at home. She is asymptomatic. 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 No abdominal pain. No vomiting. No fevers. No chills. Nothing makes it better or worse. 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 : None HEENT: None Psych: None Musculoskeletal: None Derm: Other - Past Surgical History Past Surgical History: Yes /HONEY PRODUCER: section, 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 - Present Medications Home Medications: Ambulatory Orders Medication Instructions Recorded Confirmed lisinopriL [Lisinopril] 30 mg PO DAILY 01/25/16 02/25/21 hydroCHLOROthiazide 25 mg PO DAILY 04/22/20 02/25/21 [Hydrochlorothiazide] Dulaglutide [Trulicity] 0.75 mg SQ ONCE 02/25/21 02/25/21 hydrOXYzine pamoate [Vistaril] 50 mg PO HS 02/25/21 02/25/21 Valacyclovir HCl [Valtrex] 1,000 mg PO TID #42 tablet 05/13/21 predniSONE [Deltasone] 60 mg PO DAILY #21 tablet 05/13/21 - Allergies Allergies/Adverse Reactions: Allergies Allergy/AdvReac Type Severity Reaction Status Date / Time doxycycline Allergy Edema Verified 05/16/21 18:25 - Social History Does the pt smoke?: No Smoking Status: Never smoker Does the pt drink ETOH?: Yes Does the pt have substance abuse?: No - Immunizations Immunizations are current?: Yes - POLST Patient has POLST: No PD ED PE NORMAL - Vitals Vital signs reviewed: Yes - General General: Alert and oriented X 3, No acute distress, Well developed/nourished - HEENT HEENT: PERRL, Moist mucous membranes - Neck Neck: Supple, no meningeal sign - Cardiac Cardiac: RRR, Strong equal pulses - Respiratory Respiratory: No respiratory distress, Clear bilaterally - Abdomen Abdomen: Soft, Non tender, Non distended - Derm Derm: Warm and dry - Neuro Neuro: Alert and oriented X 3, Other (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) - Psych Psych: Normal mood, Normal affect Results - Vitals Vitals: Vital Signs - 24 hr 05/16/21 05/16/21 05/16/21 18:21 18:25 19:52 Temperature 36.2 C L 36.5 C 37.1 C Heart Rate 91 91 76 Respiratory 16 16 16 Rate Blood Pressure 155/92 H 155/92 H 160/107 H O2 Saturation 97 97 99 Oxygen O2 Source Room air - Labs Labs: Laboratory Tests 05/16/21 05/16/21 05/16/21 18:41 18:46 18:46 WBC 8.8 RBC 4.29 Hgb 12.4 Hct 38.1 MCV 88.8 MCH 28.9 MCHC 32.5 RDW 13.3 Plt Count 339 MPV 10.7 Neut # (Auto) 7.5 H Lymph # (Auto) 1.1 L Rice # (Auto) 0.2 Eos # (Auto) 0.0 Baso # (Auto) 0.0 Absolute Nucleated RBC 0.00 Nucleated RBC % 0.0 VBG pH VBG pCO2 VBG pO2 VBG HCO3 VBG Total CO2 VBG O2 Saturation VBG Base Excess Sodium 133 L Potassium 3.9 Chloride 101 Carbon Dioxide 24 Anion Gap 8.0 BUN 25 H Creatinine 0.9 Estimated GFR (MDRD) 68 L Glucose 360 H POC Whole Bld Glucose 317 H Calcium 8.8 Total Bilirubin 0.8 AST 16 ALT 20 Alkaline Phosphatase 80 Total Protein 7.5 Albumin 4.1 Globulin 3.4 Albumin/Globulin Ratio 1.2 Lipase 53 H Urine Color Urine Clarity Urine pH Ur Specific [place] Urine Protein Urine Glucose (UA) Urine Ketones Urine Occult Blood Urine Nitrite Urine Bilirubin Urine Urobilinogen Ur Leukocyte Esterase Ur Microscopic Review Urine Culture Comments Serum Ketones NEGATIVE 05/16/21 05/16/21 18:46 18:46 WBC RBC Hgb Hct MCV MCH MCHC RDW Plt Count MPV Neut # (Auto) Lymph # (Auto) Rice # (Auto) Eos # (Auto) Baso # (Auto) Absolute Nucleated RBC Nucleated RBC % VBG pH 7.371 VBG pCO2 39.5 L VBG pO2 24.9 L VBG HCO3 22.4 L VBG Total CO2 23.6 L VBG O2 Saturation 46.9 L VBG Base Excess -2.6 L Sodium Potassium Chloride Carbon Dioxide Anion Gap BUN Creatinine Estimated GFR (MDRD) Glucose POC Whole Bld Glucose Calcium Total Bilirubin AST ALT Alkaline Phosphatase Total Protein Albumin Globulin Albumin/Globulin Ratio Lipase Urine Color LT. 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 She is currently on steroids for this. This caused hyperglycemia with her normal diabetes. No evidence of DKA. Patient is asymptomatic. Blood sugar decreased with insulin. We will have her follow-up with her doctor for further care. Patient counseled regarding signs and symptoms for which I believe and urgent re-evaluation would be necessary. Patient with good understanding of and agreement to plan and is comfortable going home at this time This document was made in part using voice recognition software. While efforts are made to proofread this document, sound alike and grammatical errors may occur. Departure - Departure Disposition: 01 Home, Self Care Clinical Impression: Hyperglycemia Condition: Good Instructions: ED Hyperglycemia Diabetic Follow-Up: ERIN ORTIZ MD [Primary Care Provider] - Comments: Continue your medications at home. When you stop the steroids, your blood sugar should return to normal. Return if you worsen. P the steroids, your blood Discharge Date/Time: 05/16/21 19:50
[2021-05-16 19:53] VITALS: BP 160/107
== END 2021-05-16 19:50 | disposition home or self-care (01) ==
LOC: ED 18:17
DX: E11.65 Type 2 diabetes mellitus with hyperglycemia (principal); Z79.4 Long term (current) use of insulin; G51.0 Bell's palsy
CPT/HCPCS: 36415; 80053; 81003; 82009; 82803; 83690; 85025; 99283; J1815; 81001; 87086

== ENCOUNTER 2022-02-15 11:18 | Emergency (ER) | payer OTHER ==
[2022-02-15 11:25] VITALS: BP 137/88
[2022-02-15] MEDS ORDERED: IBUPROFEN 600 MG TABLET PO STA (12:05)
[2022-02-15] MEDS ORDERED: TETANUS/DIPHTHERIA/PERTUSSIS 0.5 ML SYRINGE IM ONE (12:05)
--- NOTE | 2022-02-15 12:07 | ED Physician Documentation ---
History of Present Illness - Stated complaint Stated Complaint: LT FINGER LAC - Chief complaint Chief Complaint: Laceration - Additonal information Additional information: 46-year-old left-handed female presents emergency department for evaluation of a laceration to the tip of her left middle finger sustained when using scissors. Uncertain of last tetanus. 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 : None HEENT: None Psych: None Musculoskeletal: None Derm: Other - Past Surgical History Past Surgical History: Yes /DRUM SANDER OFFBEARER: section, 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 - Present Medications Home Medications: Ambulatory Orders Medication Instructions Recorded Confirmed lisinopriL [Lisinopril] 30 mg PO DAILY 01/25/16 02/25/21 hydroCHLOROthiazide 25 mg PO DAILY 04/22/20 02/25/21 [Hydrochlorothiazide] Dulaglutide [Trulicity] 0.75 mg SQ ONCE 02/25/21 02/25/21 hydrOXYzine pamoate [Vistaril] 50 mg PO HS 02/25/21 02/25/21 Valacyclovir HCl [Valtrex] 1,000 mg PO TID #42 tablet 05/13/21 predniSONE [Deltasone] 60 mg PO DAILY #21 tablet 05/13/21 - Allergies Allergies/Adverse Reactions: Allergies Allergy/AdvReac Type Severity Reaction Status Date / Time doxycycline Allergy Edema Verified 02/15/22 11:26 - Social History Does the pt smoke?: No Smoking Status: Never smoker Does the pt drink ETOH?: Yes Does the pt have substance abuse?: No - Immunizations Immunizations are current?: Yes - POLST Patient has POLST: No PD ED PE EXPANDED - General General: Alert - Extremities Extremities: Left finger(s) (Left middle finger distal tip flap laceration 0.25 cm. DIP joint flex and extend against resistance.) Results - Vitals Vitals: Vital Signs - 24 hr 02/15/22 11:23 Temperature 36.7 C Heart Rate 79 Respiratory 16 Rate Blood Pressure 137/88 H O2 Saturation 96 Oxygen O2 Source Room air Procedures - Laceration (location) left middle finnger Length in cm: 0.3 Wound type: Irregular, Superficial Neurovascular status: Sensory intact, Motor intact Tendon involvement: Tendon intact Wound preparation: Irrigated copiously NS Skin layer closure: Dermabond Other: Patient tolerated well, No complications, Tetanus booster given PD MEDICAL DECISION MAKING - ED course Complexity details: reviewed results, re-evaluated patient, d/w patient ED course: 46-year-old female presents emergency department for evaluation of a left distal fingertip laceration sustained when using scissors. This is a flap laceration that was closed using glue. Discussed with the patient that the flap itself may not survive and at that point wound closure would have to be by secondary intention. Tetanus was updated today. Routine wound care and emergent return precautions for concerns of infection was discussed. Departure - Departure Disposition: 01 Home, Self Care Clinical Impression: Finger laceration Qualifiers: Encounter type: initial encounter Finger: middle finger Damage to nail status: without damage Foreign body presence: without foreign body Laterality: left Qualified Code(s): S61.213A - Laceration without foreign body of left middle finger without damage to nail, initial encounter Condition: Stable Record reviewed to determine appropriate education?: Yes Instructions: ED Laceration Ext Skin Glue Comments: Aaliyah your laceration was closed with glue today. In general the glue will simply wear away over the next 5 to 7 days. As we discussed this was a fairly shallow laceration and the skin may not survive. In this event it will simply heal from the inside out. Your tetanus was updated today and is good for the next 7 to 10 years. If at any point you have concerns of infection such as redness, fevers increased pain or milky drainage then please return immediately to the ER for second evaluation. In general Tylenol and ibuprofen [id number] should adequately control the pain.
== END 2022-02-15 12:35 | disposition home or self-care (01) ==
LOC: ED 11:18
DX: S61.213A Laceration without foreign body of left middle finger without damage to nail, initial encounter (principal); W27.2XXA Contact with scissors, initial encounter; I10 Essential (primary) hypertension; E11.9 Type 2 diabetes mellitus without complications; Z79.899 Other long term (current) drug therapy; Z23 Encounter for immunization; Z71.85 Encounter for immunization safety counseling
CPT/HCPCS: 12001; 90471; 90715; 99282; 99283; A9270

== ENCOUNTER 2022-12-19 10:32 | Emergency (ER) | payer OTHER ==
[2022-12-19 10:42] VITALS: BP 115/75
[2022-12-19] MEDS ORDERED: DEXAMETHASONE 10 MG/ML VIAL PO STA (11:13)
[2022-12-19] MEDS ORDERED: CHERRY SYRUP 10 ML UDC PO ONE (11:13)
--- NOTE | 2022-12-19 11:15 | ED Physician Documentation ---
History of Present Illness - Stated complaint Stated Complaint: R EAR PX - Chief complaint Chief Complaint: Heent - History obtained from History obtained from: Patient - History of Present Illness Timing: How many days ago (10) Pain level max: 5 Pain level now: 2 - Additonal information Additional information: Patient is a 47-year-old female who presents to the emergency department with right ear pain. She states this been ongoing for the past 10 days. Today she noticed some pain radiating down the right side of her neck. Nothing makes it better or worse. No fevers. No chills. No cough. No congestion. 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 : None HEENT: None Psych: None Musculoskeletal: None Derm: Other - Past Surgical History Past Surgical History: Yes /REPORTING CONSULTANT: section, 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 - Present Medications Home Medications: Ambulatory Orders Medication Instructions Recorded Confirmed lisinopriL [Lisinopril] 30 mg PO DAILY 01/25/16 02/25/21 hydroCHLOROthiazide 25 mg PO DAILY 04/22/20 02/25/21 [Hydrochlorothiazide] Dulaglutide [Trulicity] 0.75 mg SQ ONCE 02/25/21 02/25/21 hydrOXYzine pamoate [Vistaril] 50 mg PO HS 02/25/21 02/25/21 Valacyclovir HCl [Valtrex] 1,000 mg PO TID #42 tablet 05/13/21 predniSONE [Deltasone] 60 mg PO DAILY #21 tablet 05/13/21 - Allergies Allergies/Adverse Reactions: Allergies Allergy/AdvReac Type Severity Reaction Status Date / Time doxycycline Allergy Edema Verified 12/19/22 10:39 - Social History Does the pt smoke?: No Smoking Status: Never smoker Does the pt drink ETOH?: Yes Does the pt have substance abuse?: No - Immunizations Immunizations are current?: Yes - POLST Patient has POLST: No PD ED PE NORMAL - Vitals Vital signs reviewed: Yes - General General: Alert and oriented X 3, No acute distress - HEENT HEENT: PERRL, Ears normal, Moist mucous membranes, Pharynx benign - Neck Neck: Supple, no meningeal sign, No JVD, No bruit, Other (No significant adenopathy that is tender along the right sided anterior cervical chain of lymph nodes.) - Cardiac Cardiac: RRR, Strong equal pulses - Respiratory Respiratory: No respiratory distress, Clear bilaterally - Abdomen Abdomen: Soft, Non tender, Non distended - Derm Derm: Warm and dry, No rash - Neuro Neuro: Alert and oriented X 3 - Psych Psych: Normal mood, Normal affect Results - Vitals Vitals: Vital Signs - 24 hr 12/19/22 10:37 Temperature 36 C L Heart Rate 74 Respiratory 14 Rate Blood Pressure 115/75 O2 Saturation 100 Oxygen O2 Source Room air PD Medical Decision Making - ED course Complexity details: considered differential, d/w patient ED course: Unclear etiology of the patient's ear pain. No signs of otitis media, otitis externa. Normal intraoral exam. No swelling. No evidence of cellulitis or infection. She points to the anterior cervical chain of lymph nodes as to where her pain is and she is mildly tender here, possible lymphadenitis? We will have the patient follow-up with her doctor for further care. Patient counseled regarding signs and symptoms for which I believe and urgent re-evaluation would be necessary. Patient with good understanding of and agreement to plan and is comfortable going home at this time This document was made in part using voice recognition software. While efforts are made to proofread this document, sound alike and grammatical errors may occur. Departure - Departure Disposition: 01 Home, Self Care Clinical Impression: Lymphadenitis, acute Condition: Good Instructions: ED Cervical Adenitis No Abx Tx Follow-Up: your,doctor within 1 week [Other] Comments: The symptoms you are having are likely secondary to lymph node swelling. Please follow-up with your doctor in 1 week if not better. Please return if you worsen. This should improve over the next several days. Discharge Date/Time: 12/19/22 11:20
== END 2022-12-19 11:20 | disposition home or self-care (01) ==
LOC: ED 10:32
DX: L04.9 Acute lymphadenitis, unspecified (principal); I10 Essential (primary) hypertension; E11.9 Type 2 diabetes mellitus without complications; Z79.85 Long-term (current) use of injectable non-insulin antidiabetic drugs
CPT/HCPCS: 99282; A9270

== ENCOUNTER 2023-09-15 13:57 | Emergency (ER) | payer OTHER ==
[2023-09-15 14:39] VITALS: BP 125/88; O2SAT 100
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
[2023-09-15] MEDS ORDERED: methocarbamoL 500 MG TABLET PO STA (15:16)
[2023-09-15] MEDS ORDERED: IBUPROFEN 600 MG TABLET PO STA (15:16)
[2023-09-15] MEDS ORDERED: HYDROcod/ACETAM 5/325 MG TABLET PO STA (15:16)
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
== END 2023-09-15 17:03 | disposition home or self-care (01) ==
LOC: ED 13:57
DX: S00.93XA Contusion of unspecified part of head, initial encounter (principal); S16.1XXA Strain of muscle, fascia and tendon at neck level, initial encounter; V43.52XA Car driver injured in collision with other type car in traffic accident, initial encounter; Y93.89 Activity, other specified; Y92.410 Unspecified street and highway as the place of occurrence of the external cause; R51.9 Headache, unspecified
CPT/HCPCS: 70450; 72125; 99284; A9270